=== PATIENT | female | born 1970 ===

== ENCOUNTER 2025-08-30 08:30 | Outpatient (CLI) | payer OTHER | END 2025-08-30 08:35 | disposition home or self-care (01) | LOC: MAMO-SONO 08:30 | PROVIDERS: ATTEND Obstetrics & Gynecology | DX: N60.19 Diffuse cystic mastopathy of unspecified breast (principal); Z12.31 Encounter for screening mammogram for malignant neoplasm of breast; M17.11 Unilateral primary osteoarthritis, right knee; M17.12 Unilateral primary osteoarthritis, left knee ==